=== PATIENT | male | born 1935 | race Caucasian/White ===

== ENCOUNTER 2017-04-21 11:26 | Emergency (ER) | payer OTHER ==
[2017-04-21] MEDS: CEFAZOLIN 1 GM INJ IM (13:19)
[2017-04-21] MEDS: LIDOCAINE 1% (MDV) 20 ML INJ SC (14:07)
== END 2017-04-21 16:21 | disposition home or self-care (01) ==
LOC: FTE 11:26
DX: S63.266A Dislocation of metacarpophalangeal joint of right little finger, initial encounter (principal); S61.216A Laceration without foreign body of right little finger without damage to nail, initial encounter; W10.9XXA Fall (on) (from) unspecified stairs and steps, initial encounter; Y92.9 Unspecified place or not applicable
CPT/HCPCS: 12001; 73130-RT; 96372; 99284-25